=== PATIENT | female | born 1945 | race Caucasian/White ===

== ENCOUNTER 2020-05-04 07:13 | Observation (INO) ==
[2020-05-04] MEDS ORDERED: Dexamethasone 4 MG/ML VIAL ONE (07:15)
[2020-05-04] MEDS ORDERED: Lidocaine -MPF 2% 2 ML VIAL ONE (07:15)
[2020-05-04] MEDS ORDERED: Ondansetron 4 MG/2 ML VIAL ONE (07:15)
[2020-05-04] MEDS ORDERED: *HR* FentaNYL (PF) 100 MCG/2 ML VIAL ONE (07:15)
[2020-05-04] MEDS ORDERED: Lidocaine -MPF 4% 5 ML AMPUL ONE (07:15)
[2020-05-04] MEDS ORDERED: *HR* Propofol 200 MG/20 ML VIAL IVP ONE (07:15)
[2020-05-04] MEDS ORDERED: *HR* Rocuronium Bromide 50 MG/5 ML VIAL ONE (07:15)
[2020-05-04] MEDS ORDERED: *HR* Succinylcholine 200 MG/10 ML VIAL IVP ONE (07:22)
[2020-05-04] MEDS ORDERED: Ondansetron 4 MG/2 ML VIAL IVP PRN (07:28)
[2020-05-04] MEDS ORDERED: Naloxone 0.4 MG/ML INJ IVP PRN (07:28)
[2020-05-04] MEDS ORDERED: *HR* FentaNYL (PF) 100 MCG/2 ML VIAL IVP PRN (07:38)
[2020-05-04] MEDS ORDERED: *HR* Dextrose 50 % in Water (Vial) 50 ML VIAL IVP PRN (07:40)
[2020-05-04] MEDS ORDERED: D5% in Water 1,000 ML IVC PRN (07:40)
[2020-05-04] MEDS ORDERED: Dextrose Gel 15 GM/37.5 ML TUBE PO PRN ×2 (07:40)
[2020-05-04 08:33] LABS: Basophils % 0.4 %; Eosinophils # 0.2 K/mcL (0.0-0.6); Eosinophils % 2.3 %; Hematocrit 30.3 % (35.3-44.9); Hemoglobin 10.2 g/dL (11.5-15.4); Immature Granulocytes % 0.2 % (0-4); Lymphocytes # 3.4 K/mcL (0.6-4.6); Lymphocytes % 37.2 %; Mean Corpuscular HGB Conc 33.7 g/dL (31.6-35.5); Mean Corpuscular Hemoglobin 32.1 pg (28.0-33.3); Mean Corpuscular Volume 95.3 fL (83.0-100.0); Mean Platelet Volume 10.5 fL (9.4-12.4); Monocytes # 0.7 K/mcL (0.0-1.3); Monocytes % 7.4 %; Neutrophils # 4.8 K/mcL (1.6-8.9); Platelet Count 188 K/mcL (140-400); Red Blood Count 3.18 M/mcL (3.82-4.97); Red Cell Distribution Width 12.7 % (11.5-14.5); Segmented Neutrophils % 52.5 %; White Blood Count 9.2 K/mcL (4.3-11.1)
[2020-05-04 08:39] LABS: INR 1.1; Prothrombin Time 12.3 Seconds (9.4-12.1)
[2020-05-04 08:51] LABS: Calcium 8.7 mg/dL (8.6-10.3); Potassium 3.8 mEq/L (3.5-5.1)
[2020-05-04] MEDS ORDERED: ceFAZolin 2,000 MG in Water for inj. (sterile) 20 ML IVP ONE (09:19)
[2020-05-04] MEDS ORDERED: *HR* Metoprolol 5 MG/5 ML VIAL IVP ONE (09:28)
[2020-05-04] MEDS ORDERED: EPHEDrine 50 MG/ML VIAL ONE (09:50)
[2020-05-04] MEDS ORDERED: *HR* PHENYLEPHRINE 1,000 MCG/10 ML SYRINGE IVP ONE (09:50)
[2020-05-04] MEDS ORDERED: Heparin 1,000 UNITS/500 mL 500 ML ONE (10:02)
[2020-05-04] MEDS: *HR* HYDROmorphone PF 0.5 MG/0.5 ML SYRINGE IVP PRN ×4 (11:12→11:33)
[2020-05-04] MEDS: Insulin LISPRO 300 UNITS/3 ML VIAL SUBQ SCH ×3 (12:07→23:50)
[2020-05-04] MEDS ORDERED: Scopolamine Patch 1.5 MG PATCH.TD72 TD ONE (14:22)
[2020-05-04] MEDS ORDERED: Acetaminophen IV 500 MG/50 ML BAG IVPB ONE (14:23)
[2020-05-04] MEDS ORDERED: Acetaminophen 325 MG TABLET PO PRN (18:03)
[2020-05-04] MEDS ORDERED: Ondansetron ODT 4 MG TAB.RAPDIS SL PRN (18:05)
[2020-05-04] MEDS ORDERED: Perit. Dialysis with Dex 1.5 % 12,000 ML PERITONEAL ONE (20:00)
[2020-05-04 21:58] LABS: Hepatitis B Surface Antibody 7.47 mIU/mL
[2020-05-04 22:09] LABS: Hepatitis B Surface Antigen Nonreactive (Nonreactive)
[2020-05-05] MEDS: Insulin LISPRO 300 UNITS/3 ML VIAL SUBQ SCH (05:35)
[2020-05-05] MEDS ORDERED: lisinopriL 20 MG TABLET PO SCH (09:00)
[2020-05-05] MEDS ORDERED: Metoprolol XL (24 HR) Succ 25 MG TAB.ER.24H PO SCH (09:00)
[2020-05-05] MEDS ORDERED: amLODIPine 5 MG TABLET PO SCH (09:00)
[2020-05-05 10:53] VITALS: BP 135/65
== END 2020-05-05 11:30 | disposition home or self-care (01) ==
LOC: 2ANU
PROVIDERS: ADMIT Surgery; ATTEND Surgery